=== PATIENT | male | born 1930 | race Two or more races ===

== ENCOUNTER 2016-10-14 10:19 | Emergency (ER) | payer MEDICARE, MEDICAID ==
[~2016-10-14] VITALS: Ht 167.6 cm; Wt 68.0 kg
[~2016-10-14 10:19] MED LIST: AMLO5TAB4 PO; ASPI-618 PO; GABA-536 PO; LEVO50TA8 PO; MAGNESIUM PO; MULT1CAP34 PO; OMEG300C3 PO; PANT40TA2 PO
--- NOTE | 2016-10-14 11:08 | NUR ---
Patient discharged to home in stable conditon. Written and verbal after care instructions given. Patient verbalizes understanding of instructions.
== END 2016-10-14 11:11 | disposition home or self-care (01) ==
LOC: ER 10:19
DX: S90.121A Contusion of right lesser toe(s) without damage to nail, initial encounter (principal); I10 Essential (primary) hypertension; M10.9 Gout, unspecified; Z79.82 Long term (current) use of aspirin; W22.8XXA Striking against or struck by other objects, initial encounter; Y93.89 Activity, other specified; Y99.8 Other external cause status; Y92.89 Other specified places as the place of occurrence of the external cause
CPT/HCPCS: 73660; A4663